=== PATIENT | female | born 1990 | race American Indian/Alaskan Native ===

== ENCOUNTER 2017-08-18 18:17 | Emergency (ER) | payer SELFPAY ==
[2017-08-18 18:37] VITALS: BP 140/87
[2017-08-18] MEDS ORDERED: Sodium Chloride 0.9% 1,000 ML IV ONE ×2 (19:52→21:10)
[2017-08-18] MEDS ORDERED: Sodium Chloride 0.9% 10 ML Syringe FLUSH PRN (19:53)
[2017-08-18] MEDS ORDERED: Ketorolac 30 MG/ML SDV IVPUSH ONE (21:08)
[2017-08-18] MEDS ORDERED: Thiamine 100 MG Tab PO ONE (22:20)
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
== END 2017-08-18 23:10 | disposition home or self-care (01) ==
LOC: FB.ED 18:17 → EDBD 18:17 → FB.ED 23:10
DX: S02.2XXA Fracture of nasal bones, initial encounter for closed fracture (principal); F10.129 Alcohol abuse with intoxication, unspecified; Y90.0 Blood alcohol level of less than 20 mg/100 ml; E86.0 Dehydration; Y04.0XXA Assault by unarmed brawl or fight, initial encounter
CPT/HCPCS: 36415; 70450; 72125; 80053; 80305; 81001; 85025; 85610; 96361; 96374; 99284; G0480; J1885; J7040; J7050; 99283